=== PATIENT | male | born 1950 | race Caucasian/White ===

== ENCOUNTER → 2018-11-06 | Outpatient (CLI) | payer MEDICARE, OTHER ==
[~2018-11-06] MED LIST: APIX5TAB PO; CALC-126 PO; DRON400T PO; LISI-170 PO; OMEP20TA62 PO
[2018-11-06 16:51] LABS: ALANINE AMINOTRANSFERASE 21 U/L (12-78); ALBUMIN 3.6 g/dL (3.4-5.0); ANION GAP 7 mmol/L (5-15); CALCIUM 8.5 mg/dL (8.5-10.1); CHLORIDE 105 mmol/L (98-107); CREATININE 1.37 mg/dL (0.7-1.3)
[2018-11-06 16:54] LABS: ALKALINE PHOSPHATASE 63 U/L (45-117); BILIRUBIN,TOTAL 0.9 mg/dL (0.2-1.0); TOTAL PROTEIN 6.6 g/dL (6.4-8.2)
== END | disposition home or self-care (01) ==
LOC: STAR 14:45
PROVIDERS: ATTEND Orthopaedic Surgery
DX: Z01.818 Encounter for other preprocedural examination (principal); S83.231A Complex tear of medial meniscus, current injury, right knee, initial encounter; X58.XXXA Exposure to other specified factors, initial encounter; Y93.89 Activity, other specified; Y92.89 Other specified places as the place of occurrence of the external cause; Y99.8 Other external cause status
CPT/HCPCS: 36415; 80053; 93005

== ENCOUNTER 2018-11-13 10:38 | Day surgery (SDC) | payer MEDICARE, OTHER ==
[~2018-11-13] VITALS: Ht 180.3 cm; Wt 89.0 kg
[~2018-11-13 10:38] MED LIST changes: +EPINEPHRINE 1 MG/ML, 1ML ONE; +LIDOCAINE 1%, 20ML ONE; +ROPIvacaine/PF 0.5%, 30 ML ONE
[2018-11-13] MEDS ORDERED: LACTATED RINGERS 1,000 ML IV SCH (11:05)
[2018-11-13] MEDS ORDERED: MIDAZOLAM 1 MG/ML, 2ML ONE (11:29)
[2018-11-13] MEDS ORDERED: FENTANYL PF 250 MCG/5ML ONE (11:29)
[2018-11-13] MEDS ORDERED: LIDOCAINE-MPF 1%, 2ML INFIL ONE (11:30)
[2018-11-13] MEDS ORDERED: CEFAZOLIN 1,000 MG ONE (12:43)
[2018-11-13] MEDS ORDERED: PROPOFOL 10 MG/ML, 20ML ONE (12:43)
[2018-11-13] MEDS ORDERED: PHENYLEPHRINE 10 MG/ML ONE (12:43)
[2018-11-13] MEDS ORDERED: MORPHINE SULFATE 4 MG/ML, 1ML IVPush PRN (13:00)
[2018-11-13] MEDS ORDERED: ONDANSETRON ODT 8 MG PO PRN (13:00)
[2018-11-13] MEDS ORDERED: hydrALAzine 20 MG/ML, 1ML IV PRN (13:00)
[2018-11-13] MEDS ORDERED: HYDROmorphone 2 MG/ML, 1ML IVPush PRN (13:00)
[2018-11-13] MEDS ORDERED: PROMETHAZINE 25 MG/ML, 1ML IM PRN ×2 (13:00)
[2018-11-13] MEDS ORDERED: OXYcodone 5 MG/5 ML ORAL.SOL UDC PO PRN (13:00)
[2018-11-13] MEDS ORDERED: PROMETHAZINE 25 MG/ML, 1ML IV PRN (13:00)
[2018-11-13] MEDS ORDERED: ONDANSETRON 2MG/ML, 2ML IV PRN (13:00)
[2018-11-13] MEDS ORDERED: PROMETHAZINE 12.5 MG SUPP PR PRN (13:00)
[2018-11-13] MEDS ORDERED: ACETAMINOPHEN 325 MG TABLET PO PRN (13:00)
[2018-11-13] MEDS ORDERED: LABETALOL 5MG/ML, 20ML IV PRN (13:00)
[2018-11-13] MEDS ORDERED: MEPERIDINE/PF 25MG/0.5ML IVPush PRN (13:00)
[2018-11-13] MEDS ORDERED: PROMETHAZINE 25 MG SUPP PR PRN (13:00)
[2018-11-13] MEDS ORDERED: OXYcodone 5 MG/5 ML ORAL.SOL UDC ONE (13:44)
[2018-11-13] MEDS ORDERED: ACETAMINOPHEN 650 MG/20.3 ML UDC ONE (13:44)
[2018-11-13] MEDS ORDERED: FENTANYL PF 100 MCG/2ML ONE (13:45)
[2018-11-13] MEDS: FENTANYL PF 100 MCG/2ML IV PRN ×3 (13:49→14:00)
== END 2018-11-13 15:49 | disposition home or self-care (01) ==
LOC: OUT 10:38
PROVIDERS: ATTEND Orthopaedic Surgery
DX: S83.231A Complex tear of medial meniscus, current injury, right knee, initial encounter (principal); S83.271A Complex tear of lateral meniscus, current injury, right knee, initial encounter; S83.511A Sprain of anterior cruciate ligament of right knee, initial encounter; M65.861 Other synovitis and tenosynovitis, right lower leg; M94.261 Chondromalacia, right knee; K21.9 Gastro-esophageal reflux disease without esophagitis; Z88.1 Allergy status to other antibiotic agents; Z98.890 Other specified postprocedural states; X58.XXXA Exposure to other specified factors, initial encounter; Y93.89 Activity, other specified; Y92.89 Other specified places as the place of occurrence of the external cause; Y99.8 Other external cause status
CPT/HCPCS: 29876; 29880; J0171; J0690; J2250; J2370; J2704; J2795; J3010; J3490; J7120